=== PATIENT | male | born 1975 | race Caucasian/White ===

== ENCOUNTER 2017-09-26 10:30 | Outpatient (CLI) | payer BC | END 2017-09-26 10:31 | disposition home or self-care (01) | LOC: BICRAD 10:30 | PROVIDERS: ATTEND Internal Medicine | DX: M54.5 Low back pain (principal); M25.552 Pain in left hip; M47.896 Other spondylosis, lumbar region; M16.12 Unilateral primary osteoarthritis, left hip | CPT/HCPCS: 72100 ==

== ENCOUNTER 2020-06-24 11:41 | Outpatient (CLI) | payer OTHER ==
--- NOTE | 2020-06-24 13:01 | RAD ---
PA AND LATERAL VIEWS CHEST: Date: 06/24/2020 HISTORY: Shortness of breath. FINDINGS: The heart size is normal. The lungs are expanded without focal areas of consolidation, pneumothoraces , or pleural effusions. No acute osseous abnormalities are seen. IMPRESSION: No radiographic evidence of acute cardiopulmonary process. POS: AH
== END 2020-06-24 11:42 | disposition home or self-care (01) ==
LOC: BICRAD 11:41
PROVIDERS: ATTEND Internal Medicine
DX: R06.02 Shortness of breath (principal)
CPT/HCPCS: 71046; 81001

== ENCOUNTER 2020-06-29 12:43 | Outpatient (CLI) | payer OTHER ==
--- NOTE | 2020-06-29 14:50 | CT ---
CT ABDOMEN AND PELVIS WITH CONTRAST: 06/29/20 HISTORY: Left upper quadrant abdominal pain. COMPARISON: None. FINDINGS: Lung bases are clear. No pericardial effusion. Liver, gallbladder and spleen and pancreas are unremar kable. No hydronephrosis. Adrenal glands are unremarkable. The lumbar spine is intact. There is a disc bulge at L4-5 with spinal canal effacement and neural for aminal narrowing. Evidence of old injury of the pubic symphysis, incomplete evaluated. Acetabular osteophytes are prese nt bilaterally. Appendix is visualized and is normal. No free intraperitoneal gas or fluid. IMPRESSION: 1. No acute inflammatory process within the abdomen or pelvis. 2. Normal appendix. 3. No abnormal findings in the abdomen or pelvis requiring follow-up. POS: OFF
== END 2020-06-29 12:44 | disposition home or self-care (01) ==
LOC: SCSCT 12:43
PROVIDERS: ATTEND Internal Medicine
DX: R10.12 Left upper quadrant pain (principal)
CPT/HCPCS: 74177

== ENCOUNTER 2024-08-25 11:59 | Outpatient (CLI) | payer BC | END 2024-08-25 12:00 | disposition home or self-care (01) | LOC: BICRAD 11:59 | PROVIDERS: ATTEND Internal Medicine | DX: R07.89 Other chest pain (principal) | CPT/HCPCS: 71046 ==

== ENCOUNTER 2024-08-25 12:06 | Outpatient (CLI) | payer OTHER | END 2024-08-25 12:07 | disposition home or self-care (01) | LOC: BICCT 12:06 | PROVIDERS: ATTEND Internal Medicine | DX: E78.5 Hyperlipidemia, unspecified (principal); R07.89 Other chest pain; I70.90 Unspecified atherosclerosis | CPT/HCPCS: 75571 ==